=== PATIENT | female | born 1985 | race Caucasian/White ===

== ENCOUNTER 2017-08-08 11:01 | Outpatient (CLI) | payer OTHER ==
[2017-08-08 11:36] LABS: ADD MAN DIFF? NO
[2017-08-08 12:05] LABS: ADD UMIC YES; ALANINE AMINOTRANSFERASE 11 IU/L (13-69); ALBUMIN 3.3 g/dl (3.3-4.9); ALBUMIN/GLOBULIN RATIO 1.13; ALKALINE PHOSPHATASE 79 IU/L (42-121); ANION GAP 13 (8-16); ASPARTATE AMINO TRANSFERASE 19 IU/L (15-46); BILIRUBIN,INDIRECT 0.2 mg/dl (0-1.1); BILIRUBIN,TOTAL 0.2 mg/dl (0.2-1.3); BLOOD UREA NITROGEN 3 mg/dl (7-20); CARBON DIOXIDE 22 mmol/L (21-31); CHLORIDE 107 mmol/L (97-110); CREATININE 0.53 mg/dl (0.44-1.00); GLUCOSE 94 mg/dl (70-220); POTASSIUM 3.7 mmol/L (3.5-5.1); SODIUM 138 mmol/L (135-144); TOTAL PROTEIN 6.2 g/dl (6.1-8.1); UR ASCORBIC ACID 40 mg/dL (NEGATIVE); UR BACTERIA FEW /HPF (NONE SEEN); UR BILIRUBIN (Dip) NEGATIVE (NEGATIVE); UR BLOOD (Dip) NEGATIVE (NEGATIVE); UR CALCIUM OXALATE CRYSTAL MANY /HPF (NONE SEEN); UR CLARITY SLIGHTLY CLOUDY (CLEAR); UR COLOR AMBER (YELLOW); UR GLUCOSE (Dip) NEGATIVE (NEGATIVE); UR KETONES (Dip) TRACE mg/dL (NEGATIVE); UR LEUKOCYTE ESTERASE (Dip) 3+ Leu/ul (NEGATIVE); UR MUCUS FEW /HPF (NONE SEEN); UR NITRITE (Dip) NEGATIVE (NEGATIVE); UR RBC 3 /HPF (0-5); UR SPECIFIC GRAVITY (Dip) 1.026 (1.003-1.030); UR SQUAMOUS EPITHELIAL CELL FEW /HPF (FEW); UR TOTAL PROTEIN (Dip) 1+ mg/dl (NEGATIVE); UR UROBILINOGEN (Dip) 2+ mg/dL (NEGATIVE); UR WBC 4 /HPF (0-5); URIC ACID 3.6 mg/dl (3.1-7.9)
[2017-08-08 12:09] LABS: ABNORMAL IP MESSAGE 1; BASOPHILS % 0.2 % (0.0-2.0); EOSINOPHILS # 0.1 10^3/ul (0.0-0.5); EOSINOPHILS % 1.2 % (0.0-7.0); HEMOGLOBIN 8.1 g/dl (12.0-16.0); LYMPHOCYTES # 1.2 10^3/ul (0.8-2.9); LYMPHOCYTES % 19.2 % (15.0-51.0); MEAN CORPUSCULAR HEMOGLOBIN 24.8 pg (29.0-33.0); MEAN CORPUSCULAR HGB CONC 31.2 g/dl (32.0-37.0); MEAN CORPUSCULAR VOLUME 79.5 fl (82.0-101.0); MONOCYTE # 0.5 10^3/ul (0.3-0.9); MONOCYTES % 8.6 % (0.0-11.0); NEUTROPHIL # 4.2 10^3/ul (1.6-7.5); PLATELET COUNT 126 10^3/UL (140-415); RED BLOOD COUNT 3.27 10^6/ul (4.20-5.40)
[2017-08-08 12:13] LABS: POSITIVE DIFF @See below
[2017-08-08 12:23] LABS: INR 1.01; PROTIME 13.4 Sec (11.9-14.9)
[2017-08-08 12:24] LABS: PARTIAL THROMBOPLASTIN TIME 25.2 Sec (25.0-35.0)
== END 2017-08-08 15:55 | disposition home or self-care (01) ==
LOC: OBT 11:01 → L-D 11:03 → OBT 15:55
DX: O14.93 Unspecified pre-eclampsia, third trimester (principal); O32.1XX0 Maternal care for breech presentation, not applicable or unspecified; O34.219 Maternal care for unspecified type scar from previous cesarean delivery; Z3A.29 29 weeks gestation of pregnancy
CPT/HCPCS: 76818; 80053; 81001; 84560; 85025; 85384; 85610; 85730

== ENCOUNTER 2017-10-01 16:38 | Inpatient (IN) | payer OTHER ==
[2017-10-01 17:54] LABS: ADD MAN DIFF? NO
[2017-10-01 17:57] LABS: BASOPHILS % 0.3 % (0.0-2.0); EOSINOPHILS % 0.6 % (0.0-7.0); HEMATOCRIT 24.8 % (37.0-47.0); HEMOGLOBIN 7.4 g/dl (12.0-16.0); LYMPHOCYTES # 1.8 10^3/ul (0.8-2.9); LYMPHOCYTES % 26.2 % (15.0-51.0); MEAN CORPUSCULAR HEMOGLOBIN 24.4 pg (29.0-33.0); MEAN CORPUSCULAR HGB CONC 29.8 g/dl (32.0-37.0); MEAN CORPUSCULAR VOLUME 81.8 fl (82.0-101.0); MEAN PLATELET VOLUME 13.7 fl (7.4-10.4); MONOCYTE # 0.6 10^3/ul (0.3-0.9); NEUTROPHIL # 4.2 10^3/ul (1.6-7.5); NEUTROPHILS % 62.7 % (39.0-77.0); NUCLEATED RED BLOOD CELLS% 0.3 /100WBC (0.0-0.0); PLATELET COUNT 110 10^3/UL (140-415); RED BLOOD COUNT 3.03 10^6/ul (4.20-5.40); RED CELL DISTRIBUTION WIDTH 16.5 % (11.5-14.5)
[2017-10-01 17:57] LABS: WHITE BLOOD COUNT 6.8 10^3/ul (4.8-10.8)
[2017-10-01 18:15] LABS: ALANINE AMINOTRANSFERASE 20 IU/L (13-69); ALBUMIN/GLOBULIN RATIO 1.11; ALKALINE PHOSPHATASE 146 IU/L (42-121); ANION GAP 10 (8-16); ASPARTATE AMINO TRANSFERASE 16 IU/L (15-46); BILIRUBIN,INDIRECT 0.3 mg/dl (0-1.1); BILIRUBIN,TOTAL 0.3 mg/dl (0.2-1.3); CARBON DIOXIDE 25 mmol/L (21-31); CHLORIDE 109 mmol/L (97-110); CREATININE 0.49 mg/dl (0.44-1.00); GLUCOSE 106 mg/dl (70-220); INR 0.95; POTASSIUM 3.5 mmol/L (3.5-5.1); PROTIME 12.8 Sec (11.9-14.9); SODIUM 140 mmol/L (135-144); TOTAL PROTEIN 5.7 g/dl (6.1-8.1); URIC ACID 4.2 mg/dl (3.1-7.9)
[2017-10-01 18:16] LABS: PARTIAL THROMBOPLASTIN TIME 25.8 Sec (25.0-35.0)
[2017-10-01 18:21] LABS: BLOOD UREA NITROGEN < 2 mg/dl (7-20)
[2017-10-01 18:43] LABS: UR BACTERIA FEW /HPF (NONE SEEN); UR MUCUS FEW /HPF (NONE SEEN); UR RBC 4 /HPF (0-5); UR SQUAMOUS EPITHELIAL CELL FEW /HPF (FEW); UR WBC 3 /HPF (0-5)
[2017-10-01 18:49] LABS: ADD UMIC YES; UR ASCORBIC ACID NEGATIVE (NEGATIVE); UR BILIRUBIN (Dip) NEGATIVE (NEGATIVE); UR BLOOD (Dip) NEGATIVE (NEGATIVE); UR CLARITY SLIGHTLY CLOUDY (CLEAR); UR COLOR YELLOW (YELLOW); UR GLUCOSE (Dip) NEGATIVE (NEGATIVE); UR KETONES (Dip) NEGATIVE (NEGATIVE); UR LEUKOCYTE ESTERASE (Dip) 3+ Leu/ul (NEGATIVE); UR NITRITE (Dip) NEGATIVE (NEGATIVE); UR SPECIFIC GRAVITY (Dip) 1.023 (1.003-1.030); UR TOTAL PROTEIN (Dip) 2+ mg/dl (NEGATIVE); UR UROBILINOGEN (Dip) 1+ mg/dL (NEGATIVE)
[2017-10-01] MEDS: LACTATED RINGER'S 1,000 ML IV ×2 (18:59→21:46)
[2017-10-01] MEDS ORDERED: METHYLERGONOVINE 0.2 MG INJ IM ×2 (19:00→22:00)
[2017-10-01] MEDS ORDERED: CARBOPROST 250 MCG INJ IM ×2 (19:00→22:00)
[2017-10-01] MEDS ORDERED: MISOPROSTOL 200 MCG TAB PR ×2 (19:00→22:00)
[2017-10-01] MEDS ORDERED: CEFAZOLIN 2 GM/50 ML (PMX) 50 ML IV (19:00)
[2017-10-01] MEDS ORDERED: OXYTOCIN 30 UNITS/LR 500 ML IV ×3 (19:00→22:00)
[2017-10-01] MEDS: MAGNESIUM SULFATE 4 GM/100 ML 100 ML IVPB (19:01)
[2017-10-01] MEDS: MAGNESIUM SULFATE 20 GM/500 ML 500 ML IV ×2 (19:28→22:38)
[2017-10-01] MEDS ORDERED: KETOROLAC 30 MG INJ (19:37)
[2017-10-01] MEDS ORDERED: METOCLOPRAMIDE 10 MG INJ (19:37)
[2017-10-01] MEDS ORDERED: BUPIVACAINE 0.75%/DEXT (SPINAL) 2 ML INJ (19:37)
[2017-10-01] MEDS ORDERED: morphine SULFATE/PF (10 MG/10 ML) INJ (19:37)
[2017-10-01] MEDS: ONDANSETRON 4 MG INJ IV (19:45)
[2017-10-01] MEDS: CITRIC ACID/SODIUM CITRATE 15 ML CUP PO (19:45)
[2017-10-01] MEDS ORDERED: CEFAZOLIN 1 GM INJ (20:15)
[2017-10-01] MEDS ORDERED: ESMOLOL 10 ML (20:39)
[2017-10-01] MEDS ORDERED: FENTAnyl 50 MCG/ML VIAL ×2 (21:00→21:11)
[2017-10-01 21:45] LABS: HEPATITIS B SURFACE ANTIGEN NEGATIVE (NEGATIVE)
[2017-10-01] MEDS ORDERED: NA PHOSPHATE/BIPHOS 133 ML ENEMA PR (22:00)
[2017-10-01] MEDS ORDERED: LANOLIN 7 GM TUBE TOP (22:00)
[2017-10-01] MEDS ORDERED: IBUPROFEN 800 MG TAB PO (22:00)
[2017-10-01] MEDS ORDERED: LABETALOL HCL 20MG INJ IV ×3 (22:00→23:30)
[2017-10-01] MEDS ORDERED: NACL 0.9% 3 ML SYG IV (22:00)
[2017-10-01] MEDS: OXYTOCIN 30 UNITS/LR 500 ML IV (22:09)
[2017-10-01] MEDS ORDERED: morphine (1 MG/ML) 10ML SYRINGE IV ×3 (22:30)
[2017-10-01] MEDS ORDERED: DIPHENHYDRAMINE 50 MG INJ IV ×2 (22:30)
[2017-10-01] MEDS ORDERED: morphine 2 MG INJ IV ×2 (22:30)
[2017-10-01] MEDS ORDERED: ONDANSETRON 4 MG INJ IV ×2 (22:30)
[2017-10-01] MEDS ORDERED: NALOXONE (0.4 MG/ML) INJ IV (22:30)
[2017-10-01] MEDS ORDERED: OXYCODONE/ACETAMINOPHEN (5/325) TAB PO (22:30)
[2017-10-01] MEDS: LABETALOL HCL 20MG INJ IV (22:41)
[2017-10-02 02:49] LABS: AMPHETAMINE/METHAMPHETAMINE Negative (NEGATIVE); BARBITURATES Negative (NEGATIVE); BENZODIAZEPINES Negative (NEGATIVE); COCAINE Negative (NEGATIVE)
[2017-10-02] MEDS: KETOROLAC 30 MG INJ IV ×4 (02:50→21:04)
[2017-10-02 04:58] LABS: CANNABINOIDS Negative (NEGATIVE); OPIATES Positive (NEGATIVE)
[2017-10-02] MEDS: MAGNESIUM SULFATE 20 GM/500 ML 500 ML IV ×2 (06:04→16:21)
[2017-10-02] MEDS: LACTATED RINGER'S 1,000 ML IV ×3 (08:14→21:46)
[2017-10-02] MEDS: LABETALOL 200 MG TAB PO ×2 (09:57→20:20)
[2017-10-02 10:03] LABS: ADD MAN DIFF? NO
[2017-10-02 10:06] LABS: ABNORMAL IP MESSAGE 1; BASOPHILS % 0.1 % (0.0-2.0); EOSINOPHILS % 0.5 % (0.0-7.0); HEMATOCRIT 23.6 % (37.0-47.0); HEMOGLOBIN 7.2 g/dl (12.0-16.0); LYMPHOCYTES # 1.2 10^3/ul (0.8-2.9); LYMPHOCYTES % 15.3 % (15.0-51.0); MEAN CORPUSCULAR HEMOGLOBIN 24.6 pg (29.0-33.0); MEAN CORPUSCULAR HGB CONC 30.5 g/dl (32.0-37.0); MEAN CORPUSCULAR VOLUME 80.5 fl (82.0-101.0); MEAN PLATELET VOLUME 12.9 fl (7.4-10.4); MONOCYTE # 0.5 10^3/ul (0.3-0.9); MONOCYTES % 6.3 % (0.0-11.0); NEUTROPHIL # 5.8 10^3/ul (1.6-7.5); PLATELET COUNT 104 10^3/UL (140-415); RED BLOOD COUNT 2.93 10^6/ul (4.20-5.40); RED CELL DISTRIBUTION WIDTH 16.2 % (11.5-14.5)
[2017-10-02 10:06] LABS: WHITE BLOOD COUNT 7.6 10^3/ul (4.8-10.8)
[2017-10-02 10:08] LABS: POSITIVE DIFF @See below
[2017-10-02 10:38] LABS: MAGNESIUM 3.6 mg/dl (1.7-2.5)
[2017-10-02 13:41] LABS: MAGNESIUM 3.8 mg/dl (1.7-2.5)
[2017-10-02 14:59] LABS: RAPID PLASMA REAGIN NONREACTIVE (NR)
[2017-10-02 19:06] LABS: MAGNESIUM 3.8 mg/dl (1.7-2.5)
[2017-10-02] MEDS: morphine 2 MG INJ IV (20:19)
[2017-10-02] MEDS: DOCUSATE SODIUM 100 MG CAP PO (20:19)
[2017-10-02] MEDS: FERROUS SULFATE (EC) 325 MG TAB PO (20:19)
[2017-10-02] MEDS: IBUPROFEN 800 MG TAB PO (22:00)
[2017-10-03] MEDS: HYDROCODONE/APAP (5/325) TAB PO ×4 (00:19→22:25)
[2017-10-03] MEDS: LACTATED RINGER'S 1,000 ML IV (05:46)
[2017-10-03] MEDS: IBUPROFEN 800 MG TAB PO ×3 (06:30→21:59)
[2017-10-03] MEDS: FERROUS SULFATE (EC) 325 MG TAB PO ×2 (08:06→20:43)
[2017-10-03] MEDS: DOCUSATE SODIUM 100 MG CAP PO ×2 (08:06→20:43)
[2017-10-03] MEDS: LABETALOL 200 MG TAB PO ×2 (08:14→20:43)
[2017-10-04] MEDS: HYDROCODONE/APAP (5/325) TAB PO ×2 (04:35→08:48)
[2017-10-04] MEDS: IBUPROFEN 800 MG TAB PO ×2 (06:00→14:42)
[2017-10-04] MEDS: FERROUS SULFATE (EC) 325 MG TAB PO (08:46)
[2017-10-04] MEDS: DOCUSATE SODIUM 100 MG CAP PO (08:46)
[2017-10-04] MEDS: LABETALOL 200 MG TAB PO (08:46)
[2017-10-04] MEDS: DIPHTH/TET/ACEL PERTUSS (ADULT) 0.5 ML VIAL IM* (09:06)
[2017-10-04] MEDS: MEASLES,MUMPS,RUBELLA VACCINE INJ SC* (09:06)
== END 2017-10-04 15:50 | disposition home or self-care (01) | DRG 765 ==
LOC: OBT 16:38 → L-D 16:39 → OBT 18:35 → PP1 10-02 03:10 → L-D 18:35
PROC: 10D00Z1 Extraction of Products of Conception, Low, Open Approach (ICD-10-PCS; principal; 2017-10-01 20:00)
PROC: 3E033VJ Introduction of Other Hormone into Peripheral Vein, Percutaneous Approach (ICD-10-PCS; 2017-10-01 20:00)
DX: O34.211 Maternal care for low transverse scar from previous cesarean delivery (principal); Z68.41 Body mass index [BMI] 40.0-44.9, adult; O13.4 Gestational [pregnancy-induced] hypertension without significant proteinuria, complicating childbirth; O99.214 Obesity complicating childbirth; E66.01 Morbid (severe) obesity due to excess calories; O99.02 Anemia complicating childbirth; Z3A.37 37 weeks gestation of pregnancy; Z37.0 Single live birth
CPT/HCPCS: 36415; 76818; 80053; 80307; 81001; 83735; 84560; 85025; 85610; 85730; 86592; 86850; 86900; 86901; 86920; 87340; 99464